=== PATIENT | female | born 1950 | race Caucasian/White ===

== ENCOUNTER → 2018-07-05 | Outpatient (CLI) | payer OTHER ==
[~2018-07-05] MED LIST: AZO BLADDER CO300 MG PO; CALCIUM PO; CLONAZEPAM 0.50.5 M1 PO; COQ-10100 MG PO; CYSTEX TABLET1 EAC1 PO; DHEA50 MG PO; ESTRADIOL 1 MG T1 M1 PO; KRILL OIL500 MG PO; LAMICTAL100 MG PO; LEVOTHYROXIN0.125 M1 PO; LIPITOR10 MG PO; MAGOX 400400 MG PO; MELATONIN3 MG PO; METAMUCIL PAC1 UDPKT PO; MILK THISTLE200 M1 PO; PEPCID20 MG PO; PHYTOMULTI TAB1 EACH PO; PROAIR HFA8.5 GM INH; VITAMIN D3400 UNIT PO; ZYRTEC10 M5 PO
--- NOTE | 2018-07-05 15:16 | 2DMMODE ---
[facility] [address] 2 D/M-MODE ECHOCARDIOGRAM Name: NORBERTODAYSI KRYSTLE Room #: REG [facility], [facility]1983#: [id number] ������������� Admission: 07/05/18 ������������� Attend Phys: Mirza Olmedo Discharge: ��� ������������� ��� Date of : 54 Date of Service: 07/05/18 1515 �� Report #: [id number] �������� ��������������������������������������������[id number] THIS REPORT FOR: //name// APPROVED REPORT Study performed: 07/05/2018 14:01:00 EXAM: Comprehensive 2D, Doppler, and color-flow Echocardiogram Patient Location: Out-Patient Status: routine BSA: 1.79 HR: 66 bpm BP: 120/70 mmHg Rhythm: NSR Other Information Study Quality: Good Indications Palpitations, loop implant. 2D Dimensions RVDd: 36.44 mm IVSd: 8.25 (7-11mm) LVOT Diam: 20.48 (18-24mm) LVDd: 47.92 mm PWd: 7.61 (7-11mm) Ascending Ao: 30.14 (22-36mm) LVDs: 34.32 (25-40mm) Aortic Root: 36.73 mm Volumes Left Atrial Volume (Systole) Single Plane 4CH: 47.22 mL Single Plane 2CH: 44.44 mL LA ESV Index: 27.00 mL/m2 Aortic Valve AoV Peak Santy.: 1.80 m/s AO Peak Gr.: 12.98 mmHg LVOT Max P.47 mmHg LVOT Max V: 1.27 m/s PAUL Vmax: 2.32 cm2 Mitral Valve E/A Ratio: 1.3 MV Decel. Time: 372.36 ms MV E Max Santy.: 0.90 m/s [facility] [place] [address] 2 D/M-MODE ECHOCARDIOGRAM Name: NORBERTODAYSI URIAS Room #: [facility]#: [id number] ������������� Admission: 07/05/18 ������������� Attend Phys: Mirza Olmedo Discharge: ��� ������������� ��� Date of : 54 Date of Service: 07/05/18 1515 �� Report #: [id number] �������� ��������������������������������������������[id number] MV A Santy.: 0.70 m/s MV PHT: 107.99 ms IVRT: 92.27 ms Pulmonary Valve PV Peak Santy.: 1.09 m/s PV Peak Gr.: 4.79 mmHg Pulmonary Vein P Vein S: 0.56 m/s P Vein A: 0.26 m/s P Vein D: 0.66 m/s P Vein A Dur.: 115.3 msec P Vein S/D Ratio: 0.85 Tricuspid Valve TR Peak Santy.: 2.37 m/s RAP Estimate: 5.00 mmHg TR Peak Gr.: 22.49 mmHg PA Pressure: 27.00 mmHg Left Ventricle The left ventricle is normal size. There is normal LV segmental wall motion. There is normal left ventricular wall thickness. Left ventricular systolic function is normal. LVEF is 55%. Right Ventricle The right ventricle is normal size. The right ventricular systolic function is normal. Atria The left atrium size is normal. The right atrium size is normal. Aortic Valve The aortic valve is normal in structure. No aortic regurgitation is present. There is no aortic valvular stenosis. Mitral Valve The mitral valve is normal in structure. Mild mitral regurgitation. Tricuspid Valve The tricuspid valve is normal in structure. Mild tricuspid regurgitation. Estimated PAP is 25-30mmHg. Pulmonic Valve The pulmonary valve is normal in structure. Mild pulmonic regurgitation. [facility] [address] [place] [address] 2 D/M-MODE ECHOCARDIOGRAM Name: DAYSI THORNTON [facility] [id number] ������������� Admission: 07/05/18 ������������� Attend Phys: Mirza Olmedo Discharge: ��� ������������� ��� Date of : 54 Date of Service: 07/05/18 1515 �� Report #: [id number] �������� ��������������������������������������������[id number] Great Vessels The aortic root is normal in size. The ascending aorta is normal in size. IVC is normal in size and collapses >50% with inspiration. Pericardium There is no pericardial effusion. <Conclusion> The left ventricle is normal size. LVEF is 55%. The aortic valve is normal in structure. The mitral valve is normal in structure. Mild mitral regurgitation. The tricuspid valve is normal in structure. Mild tricuspid regurgitation. Estimated PAP is 25-30mmHg. The pulmonary valve is normal in structure. Mild pulmonic regurgitation. There is no pericardial effusion. ��������������������������������������������� <ELECTRONICALLY SIGNED> ���������������������������������������� By: Luis Arellano MD ��������������������������������������������� 07/05/18 1515 1515 [id number] Luis Arellano MD /INF
== END ==
LOC: CV 11:11
DX: I08.1 Rheumatic disorders of both mitral and tricuspid valves (principal); Z88.8 Allergy status to other drugs, medicaments and biological substances; Z88.2 Allergy status to sulfonamides

== ENCOUNTER → 2018-07-19 | Outpatient (CLI) | payer OTHER | LOC: CAT 11:26 | DX: Z13.6 Encounter for screening for cardiovascular disorders (principal); E78.00 Pure hypercholesterolemia, unspecified; I25.10 Atherosclerotic heart disease of native coronary artery without angina pectoris ==

== ENCOUNTER → 2018-07-28 | Outpatient (CLI) | payer OTHER | LOC: NUC 08:14 | DX: I25.10 Atherosclerotic heart disease of native coronary artery without angina pectoris (principal); I10 Essential (primary) hypertension; J44.9 Chronic obstructive pulmonary disease, unspecified ==